=== PATIENT | male | born 1955 ===

== ENCOUNTER → 2019-10-31 | Outpatient (CLI) | payer OTHER ==
[~2019-10-31] MED LIST: AMARYL4 MG PO; CLARITIN10 MG PO; FLONASE ALLERG9.9 ML NAS; GLUCOPHAGE500 M1 PO; ISOSORBIDE DINI30 MG PO; K-TAB10 MEQ PO; LASIX20 MG PO; LEADER ASPIRIN325 MG PO; LIPITOR80 MG PO; METOPROLOL SUCC50 M2 PO; OSTERA TABLET1 EACH PO; PEPCID20 MG PO; PLAVIX75 M1 PO; PRINIVIL10 MG PO; SINGULAIR10 M1 PO; VENT7GM INH
== END | disposition home or self-care (01) ==
LOC: COVID19 01:24
DX: Z11.59 Encounter for screening for other viral diseases (principal)

== ENCOUNTER → 2019-11-07 | Day surgery (SDC) | payer OTHER ==
[~2019-11-07] VITALS: Ht 195.5 cm; Wt 166.5 kg
[2019-11-07 07:53] VITALS: BP 129/89
[2019-11-07 08:30] VITALS: BP 147/81
[2019-11-07 08:45] VITALS: BP 130/91
[2019-11-07 09:00] VITALS: BP 156/84
== END | disposition home or self-care (01) ==
LOC: SDC 11-03 08:00
DX: Z12.11 Encounter for screening for malignant neoplasm of colon (principal); K64.0 First degree hemorrhoids; K57.30 Diverticulosis of large intestine without perforation or abscess without bleeding; I10 Essential (primary) hypertension; E11.9 Type 2 diabetes mellitus without complications; J44.9 Chronic obstructive pulmonary disease, unspecified; E78.5 Hyperlipidemia, unspecified; I25.10 Atherosclerotic heart disease of native coronary artery without angina pectoris; G47.30 Sleep apnea, unspecified; E66.01 Morbid (severe) obesity due to excess calories; Z68.41 Body mass index [BMI] 40.0-44.9, adult; Z98.890 Other specified postprocedural states; Z79.899 Other long term (current) drug therapy; Z83.3 Family history of diabetes mellitus; Z82.49 Family history of ischemic heart disease and other diseases of the circulatory system
CPT/HCPCS: 00812; G0121